=== PATIENT | male | born 2000 ===

== ENCOUNTER 2022-09-24 07:21 | Day surgery (SDC) | payer OTHER ==
[2022-09-24] MEDS ORDERED: MIRALAX17 GM PO (09:32)
[2022-09-24] MEDS ORDERED: TYLENOL ARTHRI650 MG PO (09:32)
[2022-09-24] MEDS ORDERED: KETO10TA2 PO (09:32)
[2022-09-24] MEDS ORDERED: ULTRAM50 MG PO (09:32)
== END 2022-09-24 21:20 | disposition home or self-care (01) ==
LOC: CIR.AMB 07:21
PROVIDERS: ATTEND Surgery
DX: K40.90 Unilateral inguinal hernia, without obstruction or gangrene, not specified as recurrent (principal); Z20.822 Contact with and (suspected) exposure to COVID-19; Z86.16 Personal history of COVID-19; E16.2 Hypoglycemia, unspecified
CPT/HCPCS: 49650; C1781